=== PATIENT | female | born 1965 | race Two or more races ===

== ENCOUNTER 2023-04-08 10:59 | Emergency (ER) | payer SELFPAY ==
[~2023-04-08] VITALS: Ht 167.6 cm; Wt 156.0 kg
[2023-04-08 12:14] VITALS: BP 115/84; PULSE 114; RESP 28; TEMP 97.6; O2SAT 94
[2023-04-08] MEDS ORDERED: METH4PAK PO ×3 (12:46→13:11)
[2023-04-08] MEDS ORDERED: AZIT500T66 PO ×3 (12:46→13:11)
[2023-04-08] MEDS ORDERED: GUAI1SOL3 PO (12:49)
== END 2023-04-08 13:12 | disposition home or self-care (01) ==
LOC: ER 10:59
DX: J20.9 Acute bronchitis, unspecified (principal)